=== PATIENT | female | born 1975 | race Caucasian/White ===

== ENCOUNTER → 2020-11-17 | Outpatient (CLI) | payer BC ==
--- NOTE | 2020-11-19 08:08 | MM ---
Reason for exam: screening (asymptomatic). Last mammogram was performed 1 year and 2 months ago. History: Family history of breast cancer in maternal aunt and breast cancer in maternal grandmother. Physical Findings: A clinical breast exam by your physician is recommended on an annual basis and results should be correlated with mammographic findings. MG 3D Screening Mammo W/Cad Bilateral CC and MLO view(s) were taken. Prior study comparison: September 19, 2019, right breast MG 3d work up w/cad RT. September 04, 2019, bilateral MG 3d screening mammo w/cad. August 15, 2018, bilateral MG 3d screening mammo w/cad. July 20, 2017, bilateral MG 3d screening mammo w/cad. The breast tissue is heterogeneously dense. This may lower the sensitivity of mammography. There is chronic nodularity bilaterally inferiorly on the MLO views. No significant changes when compared with prior studies. ASSESSMENT: Benign, BI-RAD 2 RECOMMENDATION: Routine screening mammogram of both breasts in 1 year.
== END | disposition home or self-care (01) ==
LOC: RADMAMWWP 12:57 → MERGE 13:00
PROVIDERS: ATTEND Family Medicine
DX: Z12.31 Encounter for screening mammogram for malignant neoplasm of breast (principal)
CPT/HCPCS: 77063; 77067

== ENCOUNTER → 2022-01-31 | Outpatient (CLI) | payer BC ==
--- NOTE | 2022-02-01 14:05 | MM ---
Reason for exam: screening (asymptomatic). Last mammogram was performed 1 year and 3 months ago. History: Family history of breast cancer in maternal aunt and breast cancer in maternal grandmother. Physical Findings: A clinical breast exam by your physician is recommended on an annual basis and results should be correlated with mammographic findings. MG 3D Screening Mammo W/Cad Bilateral CC and MLO view(s) were taken. XCCL view(s) were taken of the left breast. Prior study comparison: November 17, 2020, bilateral MG 3d screening mammo w/cad. September 19, 2019, right breast MG 3d work up w/cad RT. The breast tissue is heterogeneously dense. This may lower the sensitivity of mammography. New nodular density right 11:30 position zone B. ASSESSMENT: Incomplete: need additional imaging evaluation, BI-RAD 0 RECOMMENDATION: Ultrasound of the right breast. [facility] will attempt to contact patient to return for ultrasound.
== END | disposition home or self-care (01) ==
LOC: RADMAMWWP 07:18
PROVIDERS: ATTEND Obstetrics & Gynecology
DX: Z12.31 Encounter for screening mammogram for malignant neoplasm of breast (principal); Z80.3 Family history of malignant neoplasm of breast
CPT/HCPCS: 77063; 77067

== ENCOUNTER → 2022-02-02 | Outpatient (CLI) | payer BC ==
--- NOTE | 2022-02-03 08:24 | USB ---
Reason for exam: additional evaluation requested from abnormal screening. History: Family history of breast cancer in maternal aunt and breast cancer in maternal grandmother. Physical Findings: A clinical breast exam by your physician is recommended on an annual basis and results should be correlated with mammographic findings. US Breast Workup Limited RT Right limited breast ultrasound including focal area of concern, retroareolar and axilla demonstrates a 0.5 x 0.5 x 0.6cm cystic lesion at 9 o'clock, 3cm from nipple, likely mammographic correlate and a 0.6 x 0.7 x 0.2cm cystic lesion at 10 o'clock, 8cm from nipple. 6 month follow up recommended. Scanned 9-1 o'clock. Results were given to the patient verbally at the time of the exam. ASSESSMENT: Probably benign, BI-RAD 3 RECOMMENDATION: Follow-up diagnostic mammogram of the right breast in 6 months.
== END | disposition home or self-care (01) ==
LOC: RADUSWWP 15:03
PROVIDERS: ATTEND Obstetrics & Gynecology
DX: R92.8 Other abnormal and inconclusive findings on diagnostic imaging of breast (principal); Z80.3 Family history of malignant neoplasm of breast

== ENCOUNTER → 2022-10-23 | Outpatient (CLI) | payer BC ==
--- NOTE | 2022-10-23 13:40 | MM ---
Reason for Exam: Follow-up at short interval from prior study. Last screening mammogram was performed 9 month(s) ago. Patient History: Menarche at age 12. First Full-Term at age 21. Maternal grandmother had breast cancer. Maternal aunt had breast cancer, age 44. Last menstrual period: 10/10/2022 Risk Values: María 5 year model risk: 0.8%. NCI Lifetime model risk: 8.4%. Prior Study Comparison: 09/19/2019 Right Diagnostic Mammogram, [facility]. 11/17/2020 Bilateral Screening Mammogram, [facility]. 01/31/2022 Bilateral Screening Mammogram, [facility]. Tissue Density: Right: There are scattered fibroglandular densities. Findings: Analyzed By CAD. Nodularity previously seen centrally in the right breast has resolved. Otherwise, no significant change. Overall Assessment: Benign, BI-RAD 2 Management: Screening Mammogram of both breasts in 4 months. Return to routine annual screening mammogram both breasts, due in 4 months. Patient should continue monthly self breast exams. Results were given to the patient verbally at the time of exam. Electronically signed and approved by: Deborah Ellis M.D. Radiologist
== END | disposition home or self-care (01) ==
LOC: RADMAMWWP 12:56
PROVIDERS: ATTEND Obstetrics & Gynecology
DX: R92.8 Other abnormal and inconclusive findings on diagnostic imaging of breast (principal); Z80.3 Family history of malignant neoplasm of breast
CPT/HCPCS: 77061; 77065

== ENCOUNTER → 2022-12-29 | Outpatient (CLI) | payer BC | END | disposition home or self-care (01) | LOC: LABPAT 13:04 | PROVIDERS: ATTEND Obstetrics & Gynecology | DX: Z53.9 Procedure and treatment not carried out, unspecified reason (principal) ==

== ENCOUNTER 2023-01-12 06:57 | Day surgery (SDC) | payer BC ==
[2023-01-09 15:16] VITALS: BMI 30.7
--- NOTE | 2023-01-10 10:33 | HP ---
HISTORY AND PHYSICAL For surgery on Thursday, January 12, 2023. HISTORY OF PRESENT ILLNESS: The patient is a 47-year-old 3, para 2-0-1-2, who presented to the office with complaints of increasingly dysfunctional bleeding pattern over the last year. She would have normal regular cycles, which would be followed shortly by several more days of moderate bleeding, which has become significantly interruptive of her lifestyle. Ultrasound demonstrated only 1 small fundal fibroid and endometrial biopsy was benign. She has requested treatment with diagnostic hysteroscopy with NovaSure endometrial ablation. She has a tubal ligation in place and is not interested in hormonal manipulation to attempt to control this. PAST MEDICAL HISTORY: Significant for ITP. PAST SURGICAL HISTORY: Significant only for tubal ligation in 1999 and then colonoscopy. There were no reported anesthetic concerns. OBSTETRICAL HISTORY: 3, para 2-0-1-2 with 2 term vaginal deliveries and 1 early miscarriage requiring D and C. Method of contraception is tubal ligation. GYNECOLOGIC HISTORY: Unremarkable with no history of any infections to include STDs and is otherwise confined to history of present illness. FAMILY HISTORY: Noncontributory. SOCIAL HISTORY: The patient is and is a nonsmoker. She reports occasional alcohol. No other social concerns. CURRENT MEDICATIONS: Include only Prozac 20 mg daily. ALLERGIES: No known drug allergies. REVIEW OF SYSTEMS: Confined to history of present illness. PHYSICAL EXAMINATION: VITAL SIGNS: Stable. The patient is afebrile. GENERAL: This is a well-developed, well-nourished white female, in no acute distress. HEART: Has a regular rhythm and rate without murmur. LUNGS: Clear to auscultation bilaterally in all guerrero. ABDOMEN: Nondistended, has normoactive bowel sounds. Soft, nontender, without any palpable masses aside from the uterine fundus. EXTREMITIES: Without any cyanosis, clubbing, or edema and are nontender to palpation bilaterally. PELVIC: Demonstrates normal external genitalia and BUS with normal vaginal mucosa and cervix. There is no cervical motion tenderness. Uterus is approximately 5-6 weeks in size, mid plane, mobile, nontender, normal in shape. The adnexa are normal and nontender without mass bilaterally. ASSESSMENT AND PLAN: Dysfunctional uterine bleeding. We did discuss a number of different options for treatment and she has declined hormonal manipulation as she is not in need of contraception with tubal ligation in place. She has requested diagnostic hysteroscopy with NovaSure endometrial ablation. The risks and complications of this have been discussed at length including risk for bleeding, bleeding requiring transfusion, infection, and injury to local structures to specifically include uterine perforation, Asherman syndrome, and subsequent hematometra. She has understood all this and agreed to proceed. We are scheduled for the procedure as outlined above on Thursday, January 12, 2023. MMODL / IJN: [id number] /
[~2023-01-12 06:57] MED LIST: DEXAMETHASONE SOD PHOSPHATE 4 MG/ML 1 ML VIAL IV ONE; HYDROmorphone 0.5 MG/0.5 ML SYRINGE IVP PRN; LACTATED RINGERS 1,000 ML IV SCH; LIDOCAINE 1% (10MG/ML) FOR IV START INTRADERMA PRN; MIDAZOLAM 2 MG/2 ML VIAL IV PRN; ONDANSETRON 4 MG/2 ML VIAL IVP ONE; Pre Op ABX Message 1 EACH MISC MISCELLANE ONE
[2023-01-12] MEDS ORDERED: KETOROLAC 15 MG/ML 1 ML VIAL ONE (08:19)
[2023-01-12] MEDS ORDERED: MIDAZOLAM 2 MG/2 ML VIAL ONE (08:19)
[2023-01-12] MEDS ORDERED: fentaNYL (PF) 50 MCG/ML 2 ML AMP ONE (08:19)
[2023-01-12] MEDS ORDERED: PROPOFOL 10 MG/ML 20 ML VIAL IV ONE (08:19)
[2023-01-12] MEDS ORDERED: LIDOCAINE 2% INJ 20 MG/ML (2 ML VIAL) ONE (08:19)
[2023-01-12] MEDS ORDERED: diphenhydrAMINE 50 MG/ML 1 ML VIAL IVP PRN (09:00)
[2023-01-12] MEDS ORDERED: LACTATED RINGERS 1,000 ML IV SCH (09:00)
[2023-01-12] MEDS ORDERED: METOCLOPRAMIDE 5 MG/ML 2 ML VIAL IVP PRN (09:00)
[2023-01-12] MEDS ORDERED: ONDANSETRON 4 MG/2 ML VIAL IVP PRN (09:00)
[2023-01-12] MEDS ORDERED: KETOROLAC 15 MG/ML 1 ML VIAL IVP PRN (09:00)
[2023-01-12] MEDS ORDERED: Acetaminophen-Codeine 300-30mg TAB PO PRN ×2 (09:00)
[2023-01-12] MEDS ORDERED: SIMETHICONE 80 MG CHEWABLE PO PRN (09:00)
[2023-01-12] MEDS ORDERED: IBUPROFEN 600 MG TAB PO PRN (09:00)
--- NOTE | 2023-01-12 09:07 | P.OP ---
Date of Procedure: 01/12/23 Preoperative Diagnosis: #1. Dysfunctional uterine bleeding Postoperative Diagnosis: Same Procedure(s) Performed: #1. Diagnostic hysteroscopy #2. Dilation and curettage #3. NovaSure endometrial ablation Anesthesia: other (Gen. by LMA) Surgeon: Malcom Tam Estimated Blood Loss (ml): 5 IV fluids (ml): 200 Urine output (ml): 10 Pathology: other (Endometrial curettings) Condition: stable Disposition: PACU Operative Findings: Preoperative pelvic examination demonstrated a roughly 5 week slightly retroverted mobile normal shaped uterus with normal adnexa bilaterally. Intraoperatively, the uterus sounded to approximately 8.5 cm with a cervical length of approximate 4 cm. Using the hysteroscope, the bilateral tubal ostia were seen and there was a moderate amount of shaggy tissue within the in vitro cavity which is removed via curettage. The settings for the NovaSure tool where a length of 4.5 cm, a width of 3.0 cm for a total power of 74 W. After a total run time of 95 seconds, the base unit read "procedure complete." The postprocedural result appeared to be excellent. The patient is a borderline candidate for vaginal hysterectomy at best. Description of Procedure: The patient was prepped and draped in usual fashion after general anesthesia was administered by the anesthesiologist. A weighted speculum was placed and the bladder drained of approximately 10 mL of clear roberto urine. The anterior lip of the cervix was grasped with a single-tooth tenaculum and the uterus sounded to 8.5 cm with cervical length approximate 4.0 cm. Serial dilation was carried out to admit the diagnostic hysteroscope which was placed into the endometrial cavity and it was distended with saline. The findings are as noted above with bilateral tubal ostia being seen. There was a moderate amount of shaggy endometrial tissue at the fundus primarily on the patient's right and anterior portion. The decision was made for seated with curettage. The scope was removed and set aside after adequate hysteroscopy had been carried out. A Telfa was placed in the vagina and a medium sharp curet introduced into the cavity. Thorough and circumferential curettage was carried out removing the tissue onto the Telfa in the vagina. The tissues and sent for pathological diagnoses. The typical gritty texture was encountered throughout. The sharp curet was set aside and the NovaSure tool placed into the endometrial cavity, opened, and seated well. The settings for the tool were as noted above with a length of 4.5 cm, a width of 3.0 cm for a total power of 74 W. The cavity check was attempted and passed without difficulty. The tool was enabled and the run was started. After a run time of 95 seconds, the base unit read "procedure complete." The 2 was closed, removed, and discarded. The diagnostic scope was replaced within the in vitro cavity and the findings were as noted above, appeared to be excellent. All instrumentation was removed. There is some ongoing bleeding from the tenaculum sites which were made hemostatic with pressure. Estimated blood loss for the case was less than 5 mL. There were no complications. All sponge, instrument, needle counts were correct. The patient tolerated the procedure well and proceeded to the recovery room in stable condition.
[2023-01-12 09:12] VITALS: TEMP 98.4
[2023-01-12 09:58] VITALS: BP 139/76; PULSE 68; RESP 17
== END 2023-01-12 10:10 | disposition home or self-care (01) ==
LOC: OR 06:57
PROVIDERS: ATTEND Obstetrics & Gynecology
DX: N93.8 Other specified abnormal uterine and vaginal bleeding (principal); D69.3 Immune thrombocytopenic purpura; I10 Essential (primary) hypertension; Z98.890 Other specified postprocedural states; Z79.899 Other long term (current) drug therapy
CPT/HCPCS: 81025; 88305; 58563; J2250; J1100; J2405; J3010; J1885; J2704; J2001

== ENCOUNTER → 2023-02-21 | Outpatient (CLI) | payer BC ==
--- NOTE | 2023-02-21 21:22 | MM ---
Reason for Exam: Screening (asymptomatic). Last mammogram was performed 1 year(s) and 1 month(s) ago. Patient History: Menarche at age 12. First Full-Term at age 21. Maternal grandmother had breast cancer. Maternal aunt had breast cancer, age 44. Risk Values: María 5 year model risk: 0.8%. NCI Lifetime model risk: 8.4%. Prior Study Comparison: 11/17/2020 Bilateral Screening Mammogram, [facility]. 01/31/2022 Bilateral Screening Mammogram, [facility]. 10/23/2022 Right MG 3D diag mammo w/cad RT, [facility]. Tissue Density: The breast tissue is heterogeneously dense. This may lower the sensitivity of mammography. Findings: Analyzed By CAD. Chronic nodularity right MLO view. On the right axial view, nodularity appears to be fluctuating centrally in the middle to posterior depth. Precautionary 6 month follow-up is recommended. Otherwise, no significant change. Overall Assessment: Probably benign, BI-RAD 3 Management: Diagnostic Mammogram of the right breast in 6 months. For fluctuating nodularity particularly on the right XCCL view. Patient should continue monthly self-breast exams. A clinical breast exam by your physician is recommended on an annual basis. This exam should not preclude additional follow-up of suspicious palpable abnormalities. Note on María scores and lifetime risk: 1. A María score greater than 3% is considered moderate risk. If this is the case, consider specialist referral to assess eligibility for a risk reducing agent. 2. If overall lifetime risk for the development of breast cancer is 20% or higher, the patient may qualify for future screening with alternating mammogram and breast MRI. Electronically signed and approved by: Deborah Ellis M.D. Radiologist
== END | disposition home or self-care (01) ==
LOC: RADMAMWWP 07:03
PROVIDERS: ATTEND Obstetrics & Gynecology
DX: Z12.31 Encounter for screening mammogram for malignant neoplasm of breast (principal); Z80.3 Family history of malignant neoplasm of breast
CPT/HCPCS: 77063; 77067

== ENCOUNTER → 2023-07-30 | Outpatient (CLI) | payer BC ==
[2023-07-30 15:35] LABS: Basophils # (A) 0.03 X 10*3/uL (0.00-0.10); Basophils % (A) 0.6 %; Eosinophils # (A) 0.16 X 10*3/uL (0.04-0.35); HCT 38.9 % (37.2-46.3); HGB 13.1 d/dL (12.0-15.0); Lymphocytes # (A) 1.88 X 10*3/uL (0.90-5.00); Lymphocytes % (A) 35.3 %; MCH 30.9 pg (27.0-32.0); MCHC 33.7 d/dL (32.0-37.0); MCV 91.7 FL (80.0-97.0); Mean Platelet Volume 11.6 FL (9.5-12.2); Monocytes # (A) 0.33 X 10*3/uL (0.20-1.00); Monocytes % (A) 6.2 %; NRBC Per 100 WBC 0 X 10*3/uL (0.00-0.01); Neutrophils # (A) 2.92 X 10*3/uL (1.80-7.70); Neutrophils % (A) 54.7 %; Platelet Count 156 X 10*3/uL (140-440); RBC 4.24 X 10*6/uL (4.10-5.20); RDW 12.5 % (11.5-14.5); WBC 5.33 X 10*3/uL (4.50-10.00)
[2023-07-30 16:19] LABS: ALT 18 U/L (8-44); AST 19 U/L (13-35); Albumin 4.4 d/dL (3.8-4.9); Albumin/Globulin Ratio 1.91 Ratio (1.60-3.17); Alkaline Phosphatase 102 U/L (41-126); BUN/Creat Ratio 9.12 Ratio (12.00-20.00); Blood Urea Nitrogen 7.3 mg/dL (9.0-27.0); Calcium 9.1 mg/dL (8.7-10.3); Carbon Dioxide 22.6 mmol/L (21.6-31.8); Chloride 104 mmol/L (96-109); Chol/HDL Ratio 3.96 Ratio; Globulin 2.3 d/dL (1.6-3.3); Glucose 91 mg/dL (70-110); LDL Cholesterol,Calculated 84.3 mg/dL (0.0-131.0); Potassium 4.6 mmol/L (3.5-5.5); Sodium 139 mmol/L (135-145); Total Bilirubin 0.3 mg/dL (0.3-1.2); Total Protein 6.7 d/dL (6.2-8.2)
== END | disposition home or self-care (01) ==
LOC: LABWHC1 08:35
PROVIDERS: ATTEND Family Medicine
DX: I10 Essential (primary) hypertension (principal)
CPT/HCPCS: 36415; 80053; 80061; 82306; 83036; 84443; 85025

== ENCOUNTER → 2023-12-27 | Outpatient (CLI) | payer BC ==
--- NOTE | 2023-12-27 08:07 | MM ---
Reason for Exam: Follow-up at short interval from prior study. Last screening mammogram was performed 10 month(s) ago. Patient History: Menarche at age 12. First Full-Term at age 21. Maternal grandmother had breast cancer. Maternal aunt had breast cancer, age 44. Risk Values: María 5 year model risk: 0.8%. NCI Lifetime model risk: 8.3%. Prior Study Comparison: 01/31/2022 Bilateral Screening Mammogram, [facility]. 10/23/2022 Right MG 3D diag mammo w/cad RT, [facility]. 02/21/2023 Bilateral MG 3D screening mammo w/cad, [facility]. Tissue Density: Right: The breasts are heterogeneously dense, which may obscure small masses. Findings: Analyzed By CAD. No persistent mass identified. No suspicious calcifications. Overall Assessment: Benign, BI-RAD 2 Management: Screening Mammogram of both breasts in 6 months. . Results were given to the patient verbally at the time of exam. Patient should continue monthly self-breast exams. A clinical breast exam by your physician is recommended on an annual basis. This exam should not preclude additional follow-up of suspicious palpable abnormalities. Note on María scores and lifetime risk: 1. A María score greater than 3% is considered moderate risk. If this is the case, consider specialist referral to assess eligibility for a risk reducing agent. 2. If overall lifetime risk for the development of breast cancer is 20% or higher, the patient may qualify for future screening with alternating mammogram and breast MRI. Electronically signed and approved by: López De La Paz M.D. Radiologis
== END | disposition home or self-care (01) ==
LOC: RADMAMWWP 07:05
PROVIDERS: ATTEND Obstetrics & Gynecology
DX: R92.331 Mammographic heterogeneous density, right breast (principal); Z80.3 Family history of malignant neoplasm of breast
CPT/HCPCS: 77061; 77065

== ENCOUNTER → 2024-08-21 | Outpatient (CLI) | payer BC ==
--- NOTE | 2024-08-21 12:01 | MM ---
Reason for Exam: Screening (asymptomatic). Last mammogram was performed 1 year(s) and 5 month(s) ago. Patient History: Menarche at age 12. First Full-Term at age 21. Maternal grandmother had breast cancer. Maternal aunt had breast cancer, age 44. Risk Values: María 5 year model risk: 0.8%. NCI Lifetime model risk: 8.2%. Prior Study Comparison: 10/23/2022 Right MG 3D diag mammo w/cad RT, [facility]. 02/21/2023 Bilateral MG 3D screening mammo w/cad, [facility]. 12/27/2023 Right MG 3D diag mammo w/cad RT, [facility]. Tissue Density: The breasts are heterogeneously dense, which may obscure small masses. Findings: Analyzed By CAD. Right breast: There is no suspicious group of microcalcifications or new suspicious mass. Left breast: There is no suspicious group of microcalcifications or new suspicious mass. Overall Assessment: Negative, BI-RAD 1 Management: Screening Mammogram of both breasts in [address] [facility] will attempt to contact patient to return for supplemental views and ultrasound if indicated. Patient should continue monthly self-breast exams. A clinical breast exam by your physician is recommended on an annual basis. This exam should not preclude additional follow-up of suspicious palpable abnormalities. Note on María scores and lifetime risk: 1. A María score greater than 3% is considered moderate risk. If this is the case, consider specialist referral to assess eligibility for a risk reducing agent. 2. If overall lifetime risk for the development of breast cancer is 20% or higher, the patient may qualify for future screening with alternating mammogram and breast MRI. [facility], , 08/21/2024 11:58 AM. Electronically signed and approved by: Raul Mello DO
== END | disposition home or self-care (01) ==
LOC: RADMAMWWP 07:43
PROVIDERS: ATTEND Obstetrics & Gynecology Obstetrics
CPT/HCPCS: 77063; 77067

== ENCOUNTER → 2025-01-19 | Outpatient (CLI) | payer BC | END | disposition home or self-care (01) | LOC: RADMAMWWP 15:31 | PROVIDERS: ATTEND Obstetrics & Gynecology | DX: Z53.9 Procedure and treatment not carried out, unspecified reason (principal) ==